=== PATIENT | male | born 1975 | race Caucasian/White ===

== ENCOUNTER 2019-04-14 05:11 | Day surgery (SDC) | payer MEDICARE, OTHER, SELFPAY ==
[2019-04-11 14:22] VITALS: BMI 29.1
[2019-04-14] VITALS (8 sets, daily range): BP systolic 111–138; BP diastolic 74–89; PULSE 58–75; RESP 10–16; TEMP 36.6–36.8; O2SAT 95–100
--- NOTE | 2019-04-14 08:30 | SUR.PREOP ---
0830-pt presents to the [facility] for an LHC. No distress noted. Questions answered and verbalized understanding. Consent signed. PIV started and labs obtained and sent per order. Strong bilateral pedal pulses noted. Will continue to monitor.
[2019-04-14 09:20] LABS: Basophils Percent Auto 0.5 % (0.2-1.2); Eosinophils Absolute Auto 0.1 K/mm3 (0-0.3); Eosinophils Percent Auto 2.6 % (0-4.4); Hematocrit 42.8 % (42.0-52.0); Hemoglobin 14.7 g/dL (14.0-18.0); Lymphocytes Absolute Auto 1.13 K/mm3 (0.9-3.2); Lymphocytes Percent Auto 27.1 % (18.3-44.2); Mean Corpuscular HGB Conc 34.3 g/dl (32-36); Mean Corpuscular Hemoglobin 29.1 pg (26-34); Mean Corpuscular Volume 84.6 fl (80-100); Mean Platelet Volume 9.6 fl (7.4-10.4); Monocytes Absolute Auto 0.4 K/mm3 (0.1-0.6); Monocytes Percent Auto 9.4 % (2.6-8.5); Neutrophils Absolute Auto 2.5 K/mm3 (1.3-6.7); Neutrophils Percent Auto 60.4 % (45.5-73.1); Platelet Count Result 188 k/mm3 (150-375); Red Blood Count 5.06 M/mm3 (4.6-6.20); Red Cell Distribution Width 12.7 % (11.5-14.5); White Blood Count 4.2 K/mm3 (4.5-10.0)
[2019-04-14 09:32] LABS: Blood Urea Nitrogen 15 mg/dL (9-20); Calcium 8.6 mg/dL (8.4-10.2); Carbon Dioxide 26 mmol/L (22-30); Chloride 102 mmol/L (98-107); Estimated CRCL calculation 90 ml/min; Estimated Glomerular Filt Rate > 60; Glucose 103 mg/dL (75-110); Sodium 138 mmol/L (137-145)
--- NOTE | 2019-04-14 10:10 | WPDMODSED ---
Moderate Sedation Note-Pt Data Patient Data Diagnosis: Exertional chest discomfort, abnormal nuclear stress test Present Complaint: 44-year-old patient without previous cardiac history reporting exertional chest pain and dyspnea. Nuclear stress testing was abnormal interesting with a largely fixed inferior defect. Procedure to be performed/Plan: Left heart catheterization Allergies Allergy/AdvReac Type Severity Reaction Status Date / Time No Known Allergies Allergy Unverified 06/15/17 12:27 Home Medications Medication Instructions Recorded Confirmed Type alprazolam 0.5 mg PO HS PRN 04/11/19 04/11/19 History celecoxib [Celebrex] 200 mg PO DAILY 04/11/19 04/11/19 History duloxetine 60 mg PO DAILY 04/11/19 04/11/19 History gabapentin 400 mg PO TID 04/11/19 04/11/19 History lidocaine 1 patch TOPICAL DAILY 04/11/19 04/11/19 History propranolol 10 mg PO Q12H 04/11/19 04/11/19 History bupropion HCl 450 mg PO DAILY 04/14/19 04/14/19 History cyclobenzaprine 10 mg PO HS PRN 04/14/19 04/14/19 History Current Medications: Active Medications Sodium Chloride (Normal Saline Iv) 500 mls @ 100 mls/hr IV CONT .Q5H ELLY Sedation/Anesthesia: No previous sedation/anesthesia problems (including family history). [facility] Family History Family History (Updated 12/12/12 @ 15:18 by DOCTOR UNKNOWN) Other Diabetes mellitus Family history of cardiovascular disease Hypertension Social History Social History Second hand tobacco smoke exposure: No Gender identity (if verbalized by the patient): Male Mod Sed Physical Exam Physical Exam Pre Procedural Exam: Normal: Appearance, Throat, Airway, Lungs, Heart Size, Heart Rate, Heart Rhythm, Neuro Exam and Extremities Hours since solid foods: 12 Hours since liquid intake: 12 Internal Medicine - PN: Obj Da Vital Signs Vital Signs: Vital Signs - 24 hr 04/14/19 09:15 Temperature 36.8 C Pulse Rate 75 Respiratory Rate 10 L Blood Pressure 138/89 Pulse Oximetry 98 Meds/Results Medications: Active Medications Generic Name Dose Route Start Last Admin Trade Name Freq PRN Reason Stop Dose Admin Sodium Chloride 500 mls @ 100 mls/hr 04/14/19 06:10 Normal Saline Iv IV CONT .Q5H [facility] Labs CBC & Chem 7: 04/14/19 09:13 02/03/20 09:13 Labs: Laboratory Results - last 24 hr 04/14/19 04/14/19 09:13 09:13 WBC 4.2 L RBC 5.06 Hgb 14.7 Hct 42.8 MCV 84.6 MCH 29.1 MCHC 34.3 RDW 12.7 Plt Count 188 MPV 9.6 Immature Gran % (Auto) 0.0 Neut % (Auto) 60.4 Lymph % (Auto) 27.1 Mcdowell % (Auto) 9.4 H Eos % (Auto) 2.6 Baso % (Auto) 0.5 Lymph # (Auto) 1.13 Mcdowell # (Auto) 0.4 Eos # (Auto) 0.1 Baso # (Auto) 0.0 Abs Immat Gran (auto) 0.00 Absolute Neuts (auto) 2.5 Absolute Nucleated RBC 0.0 Nucleated RBC % 0.0 Sodium 138 Potassium 4.0 Chloride 102 Carbon Dioxide 26 BUN 15 Creatinine 1.00 Estim Creat Clear Calc 90 Estimated GFR > 60 Glucose 103 Calcium 8.6 ASA Classification/Sedation ASA Classification/Sedation ASA Class: II Emergent: No Risks: Risks, benefits and alternatives explained and patient/family accepted plan for sedation. Patient re-evaluated immediately prior to sedation.
--- NOTE | 2019-04-14 10:35 | SUR.PHASEII ---
1035-pt has returned from the medical laboratory manager. No distress noted. Groin soft and non-tender, no evidence of bleeding or hematoma noted. Strong right pedal pulse noted. Will continue to monitor.
--- NOTE | 2019-04-14 10:37 | WPDCARDPROC ---
Cardiac Cath Procedure Note Date of procedure:: 04/14/19 Performing physician:: Velasquez Barrios MD Indication:: exertional chest discomfort abnormal nuclear stress test Brief clinical history:: this is a 44-year-old patient with no previous documented history of cardiac problems. He has recently developed exertional chest discomfort and a nuclear stress test was done to investigate this. The study was interpreted as showing fixed inferior defect which cannot be attributed to soft tissue attenuation is he is not obese. For this reason angiogram to define his coronary anatomy has been recommended. Procedure Procedure performed:: Left heart catheterization with left ventriculography and coronary angiography Angio-Seal to right femoral artery Sedation/Medication given:: fentanyl 50 mg IV Versed 2 mg IV case start time 10:19 a.m. case end time 10:34 a.m. conscious sedation provided byXenia Ontiveros RN , trained observer Access site:: right femoral artery Estimated blood loss:: 15-20 cc Procedure note:: patient was brought to the cardiac catheterization lab in the postabsorptive state the right femoral triangle was prepared in the usual fashion anesthesia was given with 1% lidocaine infiltrated locally. Using the modified Seldinger technique a 5 Gabonese sheath was placed into the femoral artery after this left heart catheterization was performed. The left ventricle and central hemodynamics were studied using a 5 Gabonese angle pigtail catheter. Following this the coronary arteries were injected using a 5 Gabonese FL4 and JR4 catheter. Following this the cineangiograms were reviewed and the case was terminated. An angiogram was done of the femoral artery through the sheath after which a 6 Gabonese Angio-Seal device was used to secure hemostasis with a good result. He will be taken to the holding area for recovery there were no complications and no evidence of a groin hematoma Findings:: central aortic pressure is 116/64 left ventricle 116/0 end-diastolic pressure 9 there is no gradient on pullback across the aortic valve. The left ventricle is normal in size all segments contract appropriately the global ejection fraction is 50% there were no regional wall motion abnormalities left main coronary is large in caliber and widely patent the LAD is a large caliber vessel extending down to around the apex the LAD is angiographically unremarkable. The circumflex is a large caliber vessel which is dominant to the posterior circulation the circumflex the marginal branches and posterior branches are smooth and free of disease the right coronary artery is small and non dominant giving rise to RV branches and also was smooth and angiographically normal Conclusion:: 1. left coronary dominant circulation with no angiographic evidence of CAD 2. normal left ventricular systolic function 3. successful Angio-Seal deployment at the end the procedure
--- NOTE | 2019-04-14 14:37 | SUR.PHASEII ---
1355-pt given D/C orders and instructions. Questions answered and verbalized understanding. AOx4. Groin soft and non-tender, no evidence of bleeding or hematoma noted. Strong right pedal pulse noted. Taken via wheelchair to waiting vehicle. No distress noted or verbalized at time of departure.
== END 2019-04-14 13:55 | disposition home or self-care (01) ==
PROVIDERS: PCP Family Medicine; Visit Provider Specialist
PROC: 4A023N7 Measurement of Cardiac Sampling and Pressure, Left Heart, Percutaneous Approach (ICD-10-PCS; CPT 93452; principal; 2019-04-14 10:00)
DX: R07.89 Other chest pain (principal)
CPT/HCPCS: 36415; 80048; 85025; 93458; C1887; C1894; G0269; J1644; J2250; J3010; J7040

== ENCOUNTER → 2020-04-01 11:53 | Outpatient (CLI) | payer MEDICARE, OTHER, SELFPAY ==
--- NOTE | ~2020-04-01 | XR_ITS ---
EXAMINATION: XR chest 2V DATE: 04/01/2020 12:27 INDICATION: Chest pain. Sleep problem. TECHNIQUE: Frontal and lateral views of the chest were obtained. COMPARISON: None. FINDINGS: The chest demonstrates clear lungs without pneumonia, pleural effusion, or pneumothorax. Th e heart size is normal. IMPRESSION: 1. No acute cardiopulmonary disease. Reviewed, dictated and finalized at location B. [facility]
== END ==
PROVIDERS: PCP Emergency Medicine; Visit Provider Emergency Medicine
DX: G47.9 Sleep disorder, unspecified (principal)
CPT/HCPCS: 71046

== ENCOUNTER → 2020-06-03 09:26 | Outpatient (CLI) | payer MEDICARE, OTHER, SELFPAY ==
--- NOTE | ~2020-06-03 | MR_ITS ---
EXAMINATION: MR elbow LT wo con DATE: 06/03/2020 10:19 INDICATION: Strain of the left biceps muscle, fascia and tendon presenting with left elbow pain and l imited range of motion. TECHNIQUE: Magnetic resonance imaging (MRI) of the left elbow was performed without intravenous contr ast. Sequences included coronal, axial, and sagittal PD-weighted FS FSE and coronal, axial, and sagit ned PD-weighted FSE. COMPARISON: None FINDINGS: Osseous/other: Normal alignment. Normal marrow signal with no marrow edema, fracture, osteochondral lesion or patho logic marrow replacing process. Very mild osteoarthritis at the ulnotrochlear and proximal radioulnar articulations. Tendons: Triceps, biceps brachii and brachialis tendons are normal. Common flexor tendon wad is normal. Mild tendinopathy without discrete tear at the common extensor tendon wad. Ligaments: The medial and lateral collateral ligament complexes are normal. Cubital tunnel: Cubital tunnel is unremarkable with normal signal and caliber of the ulnar nerve. Fluid: Physiologic amount of fluid the elbow joint. IMPRESSION: 1. Mild tendinopathy without discrete tear at the origin of the common extensor tendon wad. 2. 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 Reviewed, dictated and finalized at location A.
== END ==
PROVIDERS: PCP Emergency Medicine; Visit Provider Orthopaedic Surgery
DX: S46.219A Strain of muscle, fascia and tendon of other parts of biceps, unspecified arm, initial encounter (principal); X58.XXXA Exposure to other specified factors, initial encounter; M19.022 Primary osteoarthritis, left elbow
CPT/HCPCS: 73221

== ENCOUNTER → 2021-03-11 07:28 | Outpatient (CLI) | payer MEDICARE, OTHER, SELFPAY ==
--- NOTE | ~2021-03-11 | MR_ITS ---
EXAMINATION: MR cervical spine wo con EXAM DATE: 03/11/2021 08:21 INDICATION: Cervicalgia, left arm pain. Migraine headaches. TECHNIQUE: Multi-sequential, multiplanar MR images of the cervical spine were obtained without contra st. Axial T2, axial T2 MERGE sequence. Sagittal T1, T2, T2 fat saturation images also obtained. Com parison is made to prior examination from 10/19/2016. FINDINGS: There is mild disc disease at C5-6 and 6-7. The vertebral body and disc heights are otherwi se well maintained. The vertebral bodies are aligned in the AP dimension. The spinal cord signal inte nsity and intrinsic morphology is normal. Cervicomedullary junction is normal in appearance. There ar e no suspicious marrow signal abnormalities. Paraspinal soft tissue is unremarkable. Level by level evaluation: C2-C3: Disc does not extend beyond the endplate margin. Uncovertebral joint arthropathy: Mild to moderate left. Facet joint arthropathy: Mild bilateral. Neural foraminal stenosis: Mild left. Central canal stenosis: No stenosis. C3-C4: Disc does not extend beyond the endplate margin. Uncovertebral joint arthropathy: Mild to moderate bilateral. Facet joint arthropathy: Mild to moderate bilateral. Neural foraminal stenosis: Mild to moderate right, mild left. Central canal stenosis: No stenosis. C4-C5: Disc does not extend beyond the endplate margin. Uncovertebral joint arthropathy: Mild bilateral. Facet joint arthropathy: Mild to moderate right, mild left. Neural foraminal stenosis: No stenosis. Central canal stenosis: No stenosis. C5-C6: There is a mild diffuse disc bulge. Uncovertebral joint arthropathy: Mild to moderate bilateral. Facet joint arthropathy: Mild to moderate bilateral. Neural foraminal stenosis: Mild left. Central canal stenosis: No stenosis. C6-C7: There is a mild diffuse disc bulge. Uncovertebral joint arthropathy: Mild to moderate bilateral. Facet joint arthropathy: Mild bilateral. Neural foraminal stenosis: No stenosis. Central canal stenosis: No stenosis. C7-T1: Disc does not extend beyond the endplate margin. Uncovertebral joint arthropathy: Mild to moderate left, mild right. Facet joint arthropathy: Mild bilateral. Neural foraminal stenosis: No stenosis. Central canal stenosis: No stenosis. There may be mild interval progression spondylosis compared to 2017. IMPRESSION: Mild to moderate cervical spondylosis. Reviewed, dictated and finalized at location A. [facility]
== END ==
DX: M47.892 Other spondylosis, cervical region (principal)
CPT/HCPCS: 72141

== ENCOUNTER 2023-01-01 11:50 | Outpatient (CLI) | payer MEDICARE, OTHER, SELFPAY ==
--- NOTE | ~2023-01-01 | XR_ITS ---
Right Shoulder Technique: AP and scapular Y views were obtained. Clinical History: Pain Findings: No fracture or dislocation is seen. Osseous alignment is anatomic. The glenohumeral and acr omioclavicular joint spaces are preserved. Soft tissues are unremarkable. Impression: Unremarkable right shoulder radiographs. Reviewed, dictated and finalized at [facility]. Impression: Unremarkable right shoulder radiographs.
--- NOTE | ~2023-01-01 | XR_ITS ---
Lumbosacral Spine: AP and lateral views Clinical History: Pain Findings: The normal lordotic curve is maintained. The vertebral bodies and posterior elements are i ntact. The intervertebral disc spaces are preserved. There is moderate to advanced facet arthropathy from L3 through S1. The sacroiliac joints are normally outlined. There is partially imaged orthopedi c hardware at the right ischium/acetabulum region. Impression: Facet arthropathy, as detailed above. Reviewed, dictated and finalized at location M. Impression: Facet arthropathy, as detailed above.
== END 2023-01-01 11:51 | disposition home or self-care (01) ==
PROVIDERS: PCP Emergency Medicine; Visit Provider Emergency Medicine
DX: M54.50 Low back pain, unspecified (principal); M25.511 Pain in right shoulder
CPT/HCPCS: 72100; 73030